=== PATIENT | female | born 1950 | race Caucasian/White ===

== ENCOUNTER 2022-05-26 09:04 | Outpatient (CLI) | payer MEDICARE, BC, SELFPAY ==
--- NOTE | 2022-05-26 09:15 | MR_ITS ---
[address] [address] Phone:?[phone] Fax:?[phone] Referring Physician Information: Peter Colorado M.D. [address] [facility] [address] Phone:?[phone] Fax:?[phone] Patient:Maritza Jim D.O.B:?1950 Sex:?Female Phone:?[phone] [facility] MRN:?[id number] Exam Date:?05/26/2022 ? EXAM: MRI OF THE RIGHT SHOULDER CLINICAL INFORMATION: The patient is a 72-year-old with right shoulder pain. Evaluate for rotator cuff tear. PRIOR SURGERY: None reported. COMPARISON STUDIES: There are no prior studies available for comparison. TECHNICAL INFORMATION: Using a 1.5T MR scanner and a localizing shoulder surface coil: 3.0 mm?coronal obliques: PD, T2, STIR 3.0 mm?sagittal obliques: PD, T2 3.0 mm?axials: PD, T2 FINDINGS: Articular/Extraarticular collections: Effusion: Mild to moderate. Subacromial/subdeltoid: Mild to moderate fluid is seen within the subacromial/subdeltoid bursa, in keeping with the full-thickness rotator cuff tearing discussed below. Subcoracoid: Mild fluid is seen within the subcoracoid bursa, in keeping with mild bursitis. Osseous structures: Proximal humerus: Cortical irregularity and subcortical edema can be seen involving the greater tuberosity region, in keeping with the rotator cuff pathology discussed below. There is no evidence for greater or lesser tuberosity fracture. No Hill-Sachs or reverse Hill-Sachs lesion is identified. Glenoid: No acute bony abnormality of the glenoid fossa or glenoid neck can be seen. Acromioclavicular joint: Mild to moderate changes of acromioclavicular joint arthrosis are present and can be seen on sagittal series 7 image 14 and on coronal series 4 image 10. Coracoacromial arch: Acromion morphology: Type II. No evidence for os acromiale. Acromiohumeral space: The lower limits of normal. Coracohumeral space: Moderately narrowed. Rotator cuff and deltoid: Supraspinatus: Moderate supraspinatus tendinosis can be seen. There is broad- based, full-thickness tearing of the supraspinatus tendon fibers, seen to best advantage on coronal series 4 image 10 and on sagittal series 8 image 7. The area of tearing measures approximately 23 mm in mediolateral dimension and 21 mm in anteroposterior dimension. No atrophic changes of the supraspinatus muscle belly are identified. Infraspinatus: Moderate infraspinatus tendinosis can be seen. There is no evidence for full or partial-thickness tearing. No atrophic changes of the infraspinatus muscle belly are present. Teres minor: No evidence for tendinosis, tearing, or associated muscle belly atrophy. Subscapularis: Moderate subscapularis tendinosis can be seen. There is no evidence for full or partial-thickness tearing. No atrophic changes of the subscapularis muscle belly are noted. Deltoid: No evidence for strain or tearing. Biceps tendon: The intra-articular portion of the long head of the biceps tendon is not well visualized. The biceps tendon is absent from the biceps sulcus. The findings are in keeping with an intra-articular rupture of the long head of the biceps tendon with subsequent retraction. Glenohumeral joint and labrum: Articular Cartilage: No definite chondral injuries along the articular surfaces of the glenohumeral articulation can be seen. No osteoarthritic changes are identified. Labrum: The anterior, posterior, superior, and inferior portions of the labrum appear intact. No evidence for paralabral ganglion cyst formation can be seen. Capsular Soft Tissues: No definite capsular abnormalities of the glenohumeral joint are seen. No evidence for capsular tearing is present and there are no MR signs of adhesive capsulitis. CONCLUSION: 1. Moderate supraspinatus, infraspinatus, and subscapularis tendinosis with superimposed full-thickness tearing of the supraspinatus tendon fibers. 2. 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 3. Glenohumeral joint effusion with subacromial/subdeltoid and subcoracoid bursal fluid. 4. Intra-articular rupture of the long head of the biceps tendon with subsequent retraction. 5. No osteoarthritic changes of the glenohumeral articulation are identified. [facility] Electronically signed on 05/26/2022 3:14:00 PM by Mannie Cabrera M.D.
== END 2022-05-26 09:05 | disposition home or self-care (01) ==
PROVIDERS: PCP Family Medicine; Visit Provider Orthopaedic Surgery
DX: M25.511 Pain in right shoulder (principal); M19.011 Primary osteoarthritis, right shoulder; M25.411 Effusion, right shoulder
CPT/HCPCS: 73221

== ENCOUNTER 2022-08-18 06:27 | Day surgery (SDC) | payer MEDICARE, BC, SELFPAY ==
[2022-08-18] VITALS (21 sets, daily range): BP systolic 100–157; BP diastolic 58–90; PULSE 70–90; RESP 14–18; TEMP 36.2–36.8; O2SAT 84–97; BMI 36.6
[2022-08-18] MEDS: LACTATED RINGERS 1000 ML 1,000 ML 100 ML IV ×2 (06:30→08:52)
[2022-08-18] MEDS: ACETAMINOPHEN 500 MG TABLET 1000 MG PO (06:50)
[2022-08-18] MEDS: OXYCODONE (CR) 10 MG TAB.ER.12H PO (06:50)
[2022-08-18] MEDS: CELECOXIB 200 MG CAPSULE PO (06:50)
[2022-08-18] MEDS: MIDAZOLAM HCL 1 MG/ML inj IVP (07:06)
[2022-08-18] MEDS: fentaNYL 100 MCG/2 ML inj IVP (07:06)
--- NOTE | 2022-08-18 07:09 | P.NB_ITS ---
Nerve Block Nerve Block Time Seen by Provider: 07:10 Date Seen: 08/18/22 Type of block requested by surgeon for post-operative analgesia: interscalene Side: right Time out performed: Yes Verification of patient name: Yes Verification of date of : Yes Site marking: site marked Name of person performing procedure: Zuhair Continuous monitoring Was continuous monitoring of O2 sat, B/P, monitoring and evaluation advisor, recorded every 15 minutes?: Yes Procedure Checklist: sterile prep, needles and gloves Ultrasound guided. Images saved: Yes Medications given in 5ml increments after negative aspiration: Ropivicaine %: 0.5 mL: 20 Needle gauge: 22 Decadron (mg): 10 Precedex (mcg): 25 Patient tolerated procedure well: Yes Block Charges Block Charge (with Pro Fee): Brachial Plexus Use of Ultrasound Machine for Block: Yes- US Guidance/pain block
--- NOTE | 2022-08-18 07:34 | SUR.PREOP ---
TIME?OUT:?05 PT/RN/MDA?VERIFICATION?OF?SURGICAL?SITE,?PROCEDURE,?AND?CONSENT OBTAINED?PRIOR?TO?INVASIVE?PROCEDURE.
[2022-08-18] MEDS: CEFAZOLIN 2 GM INJ IVP (07:50)
[2022-08-18] MEDS: SODIUM CHLORIDE IRRIG SOLUTION 3,000 ML, EPINEPHrine 1 MG IRRIGATION (08:24)
--- NOTE | 2022-08-18 09:12 | PM.ORPRC ---
Procedure Note Date of procedure: 08/18/22 Procedure: SURGEON: Peter Colorado MD LABORER LANDSCAPE: Shira Bueno PA-C PREOPERATIVE DIAGNOSIS: Right shoulder rotator cuff tear, AC joint arthrosis POSTOPERATIVE DIAGNOSIS: Right shoulder rotator cuff tear, AC joint arthrosis NAME OF OPERATION: Right shoulder arthroscopic subacromial decompression, distal clavicle excision, mini open rotator cuff repair ANESTHESIA: Supraclavicular block plus general endotracheal ESTIMATED BLOOD LOSS: 5 mL COMPLICATIONS: None SPECIMENS: None DRAINS: None PREOPERATIVE ANTIBIOTICS: Ancef 2 grams INDICATIONS: The patient is a 72-year-old female with a history of right shoulder pain secondary to the above diagnoses. Despite appropriate non operative management, they continue to have symptoms. Operative intervention was recommended. The risks, benefits and expected outcomes were discussed in detail. These included but were not limited to: Infection, bleeding, injury to blood vessel or nerve, venous thromboembolism. All questions were answered to their satisfaction. PROCEDURE: A supraclavicular block was placed by Anesthesia. General anesthesia was administered. The patient was placed in the high beach chair position. The right shoulder was prepped and draped in the usual sterile fashion. The glenohumeral joint was infiltrated with 20 mL of normal saline with epinephrine. The posterior portal was established, the arthroscope was introduced. The anterior portal was established, Diagnostic arthroscopy was performed with findings as follows: The biceps is torn and retracted out of the glenohumeral joint. The anterior, posterior and superior labrum are normal. Articular surfaces on the humeral head and glenoid are normal. There are no loose bodies. There is a full-thickness tear of the supraspinatus. The stump of the biceps was resected with the shaver. The arthroscope was placed in the subacromial space, the lateral portal was established. The Arthrex Robbins was used to dissect the acromion free. The CA ligament was recessed off the anterior acromion, the AC joint was exposed. The acromioplasty was performed with the bur in the posterior portal. The bur was then placed in the lateral portal and the lateral and anterior aspect of the acromion were resected. The undersurface of the distal clavicle was resected through the lateral portal. Finally, the bur was placed in the anterior portal and the remainder of the distal clavicle was resected for a total of 10 mm. An accessory anterolateral portal was placed. The subacromial/subdeltoid bursa was aggressively debrided. There is a full-thickness tear of the supraspinatus. Arthroscopic instruments were removed. The accessory anterolateral portal was extended proximally and distally, subcutaneous dissection was taken with electrocautery to the deltoid. The deltoid was divided in line with its fibers. The static retractor was placed. The subacromial/subdeltoid bursa was debrided with the Young scissors. The greater tuberosity was debrided to punctate bleeding bone using the arthroscopic bur. Two Arthrex BioComposite SwiveLock anchors were placed just off the articular surface. Both limbs of the FiberWire and fiber tape were passed using the scorpion. A fiber link was placed in the leading edge of the rotator cuff x2. A #2 FiberWire suture was used to place 3 margin convergence sutures, closing the rotator cuff. We then tied the 2 central FiberWire sutures over the rotator cuff. We then proceeded with a lateral row of SwiveLock anchors x 2 crossing the FiberTape and incorporating the FiberWire and fiber link into each lateral row anchor. This provides an anatomic, watertight repair of the rotator cuff. There is no tension on the repair with the shoulder at 0? abduction. The wound was irrigated with normal saline off the pump. The deltoid was repaired with an 0 Vicryl in an interrupted [id number] fashion. Subcutaneous tissues were closed with a 3-0 Vicryl. Skin was closed with a 3-0 Monocryl in a subcuticular fashion. A dry dressing, polar care and sling were applied. Sponge and needle counts were correct x2. The patient tolerated the procedure well. There were no apparent complications. They were carefully transferred to the hospital bed and taken to the postanesthesia care unit in satisfactory condition. PLAN: The patient will be discharged to home. No active range of motion of the shoulder will be allowed for 6 weeks postoperatively. They can work on active range of motion of the elbow, wrist and fingers. They will follow up in the office next week for a wound check and an AP and transscapular Y-view of the shoulder prior to being seen.
--- NOTE | 2022-08-18 09:42 | W.ANESCHARGE ---
Anesthesia Charges Start Date/Time Anesthesia Start Date: 08/18/22 Anesthesia Start Time: 07:43 Stop Date/Time Anesthesia Stop Date: 08/18/22 Anesthesia Stop Time: 09:42 Summary Emergency: No Extremes of Age: Over 71-CPT [address]
--- NOTE | 2022-08-18 12:07 | SUR.PHASEII ---
PATIENT GIVEN A INCENTIVE SPIROMETER, ANESTHESIA AWARE OF PATIENTS O2 SATS. CONTINUED TO MONITOR.
--- NOTE | 2022-08-18 12:28 | SUR.PHASEII ---
ANESTHESIA OK TO HAVE PATIENT DISCHARGE.
== END 2022-08-18 12:30 | disposition home or self-care (01) ==
PROVIDERS: PCP Family Medicine; Visit Provider Orthopaedic Surgery
PROC: (CPT 23412; principal; 2022-08-18 08:00)
DX: M75.121 Complete rotator cuff tear or rupture of right shoulder, not specified as traumatic (principal); M19.011 Primary osteoarthritis, right shoulder
CPT/HCPCS: 29826; 29824; 23412; 01630; 64415; 76942; 82962; 99100; A9270; C1713; J0171; J0330; J0690; J1100; J2250; J2405; J2704; J2795; J3010; J7120; L3670

== ENCOUNTER 2023-05-28 11:29 | Observation (INO) | payer MEDICARE, BC, SELFPAY ==
[2023-05-28 11:38] VITALS: BP 137/93; PULSE 92; RESP 18; TEMP 36.6; O2SAT 94; BMI 31.3
--- NOTE | 2023-05-28 11:51 | CRLHL7_ITS ---
For Patients: As a result of the Century Cures Act, medical imaging exams and procedure reports are released immediately into your electronic medical record. You may view this report before your referring provider. If you have questions, please contact your health care provider. INDICATION: Fall TECHNIQUE: CT head without contrast. COMPARISON: None. FINDINGS: CSF spaces: Within normal limits for age. Brain parenchyma: The phillips-white differentiation is normal. No sign of mass, hemorrhage, or midline shift. Skull base and calvarium: The visualized paranasal sinuses and mastoid air cells demonstrate no acute or significant findings. The visualized orbits are grossly unremarkable. No skull fractures. Atherosclerosis. IMPRESSION: Unremarkable noncontrast head CT. Please note that all CT scans at this facility use dose modulation, iterative reconstruction, and/or weight-based dosing when appropriate to reduce radiation dose to as low as reasonably achievable. Dictated by Pete Mcrae MD @ 05/28/2023 2:35:23 PM (Electronically Signed)
[2023-05-28 11:55] LABS: Appearance Urine Clear (Clear); Bilirubin Urine Negative (Negative); Blood Urine Negative (Negative); Color Urine Yellow (Yellow); Glucose Urine Negative (Negative); Ketones Urine Negative (Negative); Leukocyte Esterase Urine Negative (Negative); Nitrite Urine Negative (Negative); Protein Urine Negative (Negative)
[2023-05-28 12:11] LABS: RBC Urine 0-2 (0-2); Squamous Epithelial Cell Urine Few (None-Few); WBC Urine 0-2 (0-5)
[2023-05-28 13:20] LABS: Basophils Absolute Auto 0.06 K/uL (0.00-0.30); Basophils Percent Auto 0.9 % (0.0-3.0); Eosinophils Absolute Auto 0.02 K/uL (0.00-0.50); Eosinophils Percent Auto 0.3 % (0.0-7.0); Hematocrit 35.9 % (33.0-51.0); Hemoglobin* 11.1 gm/dL (12.0-16.0); Immature Granulocytes Abs Auto 0.01 K/uL (0.00-0.30); Immature Granulocytes Pct Auto 0.1 %; Lymphocytes Percent Auto 16.5 % (20-44); Mean Corpuscular HGB Conc 31 gm/dL (32-36); Mean Corpuscular Hemoglobin 25 pg (26-34); Mean Corpuscular Volume 81 fL (80-100); Monocytes Percent Auto 9.5 % (0.0-11.0); Neutrophils Percent Auto 72.7 % (42.0-72.0); Platelet Count* 240 K/uL (140-440); Red Blood Count 4.43 m/uL (4.00-5.20); White Blood Count* 6.98 K/uL (4.50-11.00)
[2023-05-28 13:26] LABS: Appearance Urine Clear (Clear); Bilirubin Urine Negative (Negative); Blood Urine Negative (Negative); Color Urine Yellow (Yellow); Glucose Urine Negative (Negative); Ketones Urine 1+ (Negative); Leukocyte Esterase Urine Negative (Negative); Nitrite Urine Negative (Negative); Protein Urine Negative (Negative); Specific Gravity Urine 1.015 (1.000-1.030)
[2023-05-28 13:32] LABS: Tricyclic Antidepressant Urine Negative (Negative)
[2023-05-28 13:33] VITALS: BP 148/73; PULSE 86; RESP 20; TEMP 36.6; O2SAT 95
[2023-05-28 13:36] LABS: Slide Review Reflex No
--- NOTE | 2023-05-28 13:36 | ED_ITS ---
HPI - General Adult General Chief complaint: Altered Mental Status <Nani Zamora MD - Last Filed: 05/29/23 19:55> Stated complaint: UTI <Nani Zamora MD - Last Filed: 05/29/23 19:55> Time Seen by Provider: 05/28/23 11:44 <Nani Zamora MD - Last Filed: 05/29/23 19:55> Source: patient and family <Nani Zamora MD - Last Filed: 05/29/23 19:55> Mode of arrival: ambulatory <Nani Zamora MD - Last Filed: 05/29/23 19:55> Limitations: no limitations <Nani Zamora MD - Last Filed: 05/29/23 19:55> History of Present Illness HPI narrative: 73 year old female presenting to the ED at the request of her primary care provider for hallucinations changes in behavior. According to her primary doctor who called the ER prior to her arriving patient presented to the clinic today for an appointment to discuss confusion. Turns out patient has been having auditory hallucinations and paranoia. She tells her family members that her is cheating on her with multiple people. She tells and that they are all in on this scandal. Per her daughter who is with her today daughter states that the patient is certain that this people are coming into their home at night and stealing there socks and underwear. She then looked through her bank accounts and patient has been going to [employer] every other day to buy new socks and underwear. They found several new batches of this in her home. Per her primary care provider and per her daughter, they are concerned that she is very manipulative and is able to hide her hallucinations and paranoia very well from other people. She has also been threatening to kill her in the middle of the night and so her primary care provider felt that an ER evaluation would be more appropriate. Per her daughter, she becomes very mean-she stares at people, she comments that every woman she sees having an affair with her . However, she has never made any physical attacks to any family member or other people. No history of self-harm. She does have a history of binge drinking per her daughter. She lives at home with her who is a chronic alcoholic according to the daughter. Per the patient, she states that everything is fine. She has no concerns today. She states that she was brought in by family members because they felt that she was confused. She denies feeling confused. <Nani Zamora MD - Last Filed: 05/29/23 19:55> Related Data Home medications: Home Medications Medication Instructions Recorded Confirmed antiarthritic combination no.2 900 mg PO 05/18/22 11/09/22 mg tablet (glucosamine-chondroitin) calcium polycarbophil 625 mg tablet 625 mg PO DAILY 05/18/22 05/29/23 cholecalciferol (vitamin D3) 125 125 mcg PO QDAY 05/18/22 05/29/23 mcg (5,000 unit) capsule coenzyme Q10 100 mg capsule 100 mg PO DAILY 05/18/22 05/29/23 furosemide 20 mg tablet 20 mg PO QAM 05/18/22 05/29/23 metformin 1,000 mg tablet 1,000 mg PO QDAY 05/18/22 05/29/23 omeprazole 20 mg capsule,delayed 20 mg PO QDAY 05/18/22 05/29/23 release pravastatin 20 mg tablet 40 mg PO QHS 05/18/22 05/29/23 quetiapine 300 mg tablet 300 mg PO QDAY 05/18/22 05/29/23 trazodone 100 mg tablet 200 mg PO QHS 05/18/22 05/29/23 venlafaxine 100 mg tablet 100 mg PO BID 05/18/22 05/29/23 cyanocobalamin (vitamin B-12) 100 100 mcg PO DAILY 08/14/22 05/29/23 mcg tablet (Vitamin B-12) melatonin 10 mg capsule 10 mg PO QHS 08/14/22 05/29/23 multivitamin with iron (Daily 1 tab PO DAILY 08/14/22 05/29/23 Multiple Vitamins with Iron tablet) potassium chloride 10 mEq 20 meq PO BID 08/14/22 05/29/23 tablet,extended release quetiapine 100 mg tablet (Seroquel) 100 mg PO QHS 08/14/22 05/29/23 vit 1 tab PO BID 08/14/22 05/29/23 [id number] 500 mg-50 mg-25 mg-40 mg tablet (Bioflex) potassium chloride 20 mEq 20 meq PO BID 05/29/23 05/29/23 tablet,extended release pravastatin 40 mg tablet 40 mg PO HS 05/29/23 05/29/23 <Nani Zamora MD - Last Filed: 05/29/23 19:55> Allergies/adverse reactions: Allergies Allergy/AdvReac Type Severity Reaction Status Date / Time zolpidem Allergy Mild nightmares Verified 11/09/22 10:25 Benzodiazepines AdvReac Unknown Unknown Verified 05/29/23 14:58 <Nani Zamora MD - Last Filed: 05/29/23 19:55> Review of Systems Status of ROS: Reports: 10 or more systems reviewed and unremarkable except as noted in History and below <Nani Zamora MD - Last Filed: 05/29/23 19:55> [facility] Medical History: Medical History (Updated 05/29/23 @ 19:32 by Aliyah Berry MD) Hypokalemia ?E87.6 - Hypokalemia (ICD-10) Alcoholic liver disease ?K70.9 - Alcoholic liver disease, unspecified (ICD-10) Insomnia ?G47.00 - Insomnia, unspecified (ICD-10) Abnormal LFTs ?R79.89 - Other specified abnormal findings of blood chemistry (ICD-10) Alcohol use disorder, severe, in sustained remission ?F10.21 - Alcohol dependence, in remission (ICD-10) Bilateral lower extremity edema ?R60.0 - Localized edema (ICD-10) Benign neoplasm of colon ?D12.6 - Benign neoplasm of colon, unspecified (ICD-10) Reflux esophagitis ?K21.00 - Gastro-esophageal reflux disease with esophagitis, without bleeding (ICD-10) Stricture and stenosis of esophagus ?K22.2 - Esophageal obstruction (ICD-10) Hyperlipidemia ?E78.5 - Hyperlipidemia, unspecified (ICD-10) Generalized anxiety disorder ?F41.1 - Generalized anxiety disorder (ICD-10) Laceration of forehead ?S01.81XA - Laceration without foreign body of other part of head, initial encounter (ICD-10) Back pain ?M54.9 - Dorsalgia, unspecified (ICD-10) Type 2 diabetes mellitus, without long-term current use of insulin ?E11.9 - Type 2 diabetes mellitus without complications (ICD-10) Major depressive disorder, recurrent ?F33.9 - Major depressive disorder, recurrent, unspecified (ICD-10) Obesity (BMI 30-39.9) ?E66.9 - Obesity, unspecified (ICD-10) Arthritis of right acromioclavicular joint ?M19.011 - Primary osteoarthritis, right shoulder (ICD-10) Rupture of right biceps tendon ?S46.211A - Strain of muscle, fascia and tendon of other parts of biceps, right arm, initial encounter (ICD-10) Rotator cuff tear, right ?M75.101 - Unspecified rotator cuff tear or rupture of right shoulder, not specified as traumatic (ICD-10) <Nani Zamora MD - Last Filed: 05/29/23 19:55> Surgical History: Surgical History (Updated 05/29/23 @ 15:07 by Aliyah Berry MD) S/P excision of lipoma (~2003) ?Z98.890 - Other specified postprocedural states (ICD-10) ?Z86.018 - Personal history of other benign neoplasm (ICD-10) History of cholecystectomy (~03/31/10) ?Z90.49 - Acquired absence of other specified parts of digestive tract (ICD- 10) Status post right rotator cuff repair (08/18/22) ?Z98.890 - Other specified postprocedural states (ICD-10) History of carpal tunnel release (02/04/10) ?Z98.890 - Other specified postprocedural states (ICD-10) S/P ORIF (open reduction internal fixation) fracture (04/28/13) ?Z98.890 - Other specified postprocedural states (ICD-10) ?Z87.81 - Personal history of (healed) traumatic fracture (ICD-10) Status post arthroscopic partial medial meniscectomy (06/06/13) ?Z98.890 - Other specified postprocedural states (ICD-10) Status post total left knee replacement (02/12/16) ?Z96.652 - Presence of left artificial knee joint (ICD-10) Status post knee replacement (10/28/16) ?Z96.659 - Presence of unspecified artificial knee joint (ICD-10) <Nani Zamora MD - Last Filed: 05/29/23 19:55> Family History: Family History (Updated 05/29/23 @ 15:10 by Aliyah Berry MD) Daughter ADHD Depression Eating disorder Father Alcohol dependence Colon cancer Son Anxiety Depression Mother Asthma Lung cancer Family/Other Bipolar disorder Brother Pancreatic cancer Sister Breast cancer <Nani Zamora MD - Last Filed: 05/29/23 19:55> Social History: Social History (Updated 05/29/23 @ 15:37 by Aliyah Berry MD) Narrative: Denies tob, EtOH, drug use. Has h/o alcohol and benzo abuse, but has not had any since Oct 2021. What is your current living situation?: I presently have a place to live Problems where you live: no known problems Problems where you live details: PATIENT REPORTS HER IS AN ALCOHOLIC In the past 12 months, utilities in danger of being shut off: no In the past 12 mos, have been you worried that your food would run out before you had money to buy more?: never true In the past 12 mos, the food you bought just didn't last and you didn't have money to buy more?: never true Highest level of school completed/degree received: high school graduate Smoking Status: Never smoker Do you use any of these nicotine containing products: None Second hand tobacco smoke exposure: No How often do you have a drink containing alcohol: never How often do you have six or more drinks on one occasion: Never AUDIT-C Alcohol total score: 0 Non-prescribed substance use: denies use Caffeine: No How often does anyone, including family, friends and others, physically hurt you : never How often does anyone, including family, friends and others, insult or talk down to you: never How often does anyone, including family, friends and others, threaten you with harm: never How often does anyone, including family, friends and others, scream or curse at you: never service: No <aNni Zamora MD - Last Filed: 05/29/23 19:55> Exam Narrative: Exam Narrative: Well-nourished well-developed patient in no acute distress. Alert and oriented x3. Answers questions appropriately. Mood and affect are appropriate. Thoughts are goal oriented and rational. No tangential or magical thinking noted. Patient speaks in full sentences without needing to catch her breath. HEENT: Normocephalic atraumatic. Pupils are equally round reactive to light. Extraocular muscles are intact. Conjunctivae are moist without any icterus noted. Moist mucous membranes. Posterior pharynx is normal. Neck is soft without any lymphadenopathy or thyromegaly. No masses are appreciated. Cardiovascular: Heart is regular rate and rhythm S1 and S2 are present without any murmurs. Lungs: Clear to auscultation bilaterally no wheezes rhonchi or rales are appreciated. Patient takes deep breaths without any discomfort. Abdomen: Soft and nontender nondistended with normal bowel sounds. Extremities: Bilateral lower extremities are without edema. Skin: Well perfused without any obvious rashes. <Nani Zamora MD - Last Filed: 05/29/23 19:55> Const: Vital Signs, click to edit/add: Vital Signs - 24 hr 05/28/23 15:50 05/28/23 18:59 Temperature 97.5 F L Pulse Rate [Pulse Oximeter] 70 79 Respiratory Rate 20 18 Blood Pressure [Ri ght Upper Arm] 152/73 H 148/76 H Pulse Oximetry 97 94 Oxygen Delivery Me thod Room Air Room Air <Nani Zamora MD - Last Filed: 05/29/23 19:55> Vital Signs, click to edit/add: Vital Signs - 24 hr 05/28/23 15:50 05/28/23 18:59 Temperature 97.5 F L Pulse Rate [Pulse Oximeter] 70 79 Respiratory Rate 20 18 Blood Pressure [Ri ght Upper Arm] 152/73 H 148/76 H Pulse Oximetry 97 94 Oxygen Delivery Me thod Room Air Room Air <Hamilton Petty MD - Last Filed: 05/29/23 15:44> Course Course Hospital Course: IV was established labs were drawn. Head CT was done and was unremarkable. Lab work was unremarkable. There is no evidence of a UTI. Drug screen was ne gative. EKG, read by me, shows normal sinus rhythm with a pulse of 92. Dec assessment was ordered. In the meantime, patient did express her concern to the nursing staff about chief her head and the fact that she was under surveillance. Per DEC patient very paranoid. No homicidal or suicidal intent, but she did admit to homicidal comments towards her , but things said in anger. Patient would like outpt therapy service - family concerned about this as aggression has been escalating. Given the recurrent homicidal comments made towards her , escalating impression per family, and escalating paranoia in the last couple of weeks I do believe that inpatient treatment would be more beneficial and safer for this particular patient. Patient accepted that she would be admitted. Several hours into her ED stay she did start becoming agitated and requested a medicine to help her relax. Patient received 5 mg of p.o. Zyprexa and this did seem to help her agitation. <Nani Zamora MD - Last Filed: 05/29/23 19:55> Vital Signs Vital signs: Initial Vital Signs Temperature 97.8 F 05/28/23 11:38 Temperature Source Temporal Artery Scan 05/28/23 11:38 Pulse Rate 92 05/28/23 11:38 Pulse Rhythm Regular 05/28/23 11:38 Respiratory Rate 18 05/28/23 11:38 Blood Pressure 137/93 H 05/28/23 11:38 Blood Pressure Mean 107 H 05/28/23 11:38 Blood Pressure Position Sitting 05/28/23 11:38 Pulse Oximetry 94 05/28/23 11:38 Oxygen Delivery Method Room Air 05/28/23 11:38 Vital Signs Temperature 97.8 F 05/28/23 11:38 Pulse Rate 92 05/28/23 11:38 Respiratory Rate 18 05/28/23 11:38 Blood Pressure 137/93 H 05/28/23 11:38 Pulse Oximetry 94 05/28/23 11:38 Oxygen Delivery Method Room Air 05/28/23 11:38 Temperature 98.0 F 05/29/23 19:45 Pulse Rate 75 05/29/23 19:45 Respiratory Rate 18 05/29/23 19:45 Blood Pressure 148/67 H 05/29/23 19:45 Pulse Oximetry 94 05/29/23 19:45 Oxygen Delivery Method Room Air 05/29/23 19:45 <Nani Zamora MD - Last Filed: 05/29/23 19:55> Initial Vital Signs Temperature 97.8 F 05/28/23 11:38 Temperature Source Temporal Artery Scan 05/28/23 11:38 Pulse Rate 92 05/28/23 11:38 Pulse Rhythm Regular 05/28/23 11:38 Respiratory Rate 18 05/28/23 11:38 Blood Pressure 137/93 H 05/28/23 11:38 Blood Pressure Mean 107 H 05/28/23 11:38 Blood Pressure Position Sitting 05/28/23 11:38 Pulse Oximetry 94 05/28/23 11:38 Oxygen Delivery Method Room Air 05/28/23 11:38 Vital Signs Temperature 97.8 F 05/28/23 11:38 Pulse Rate 92 05/28/23 11:38 Respiratory Rate 18 05/28/23 11:38 Blood Pressure 137/93 H 05/28/23 11:38 Pulse Oximetry 94 05/28/23 11:38 Oxygen Delivery Method Room Air 05/28/23 11:38 Temperature 98.0 F 05/29/23 19:45 Pulse Rate 75 05/29/23 19:45 Respiratory Rate 18 05/29/23 19:45 Blood Pressure 148/67 H 05/29/23 19:45 Pulse Oximetry 94 05/29/23 19:45 Oxygen Delivery Method Room Air 05/29/23 19:45 <Hamilton Petty MD - Last Filed: 05/29/23 15:44> Medical Decision Making MDM Narrative Medical decision making narrative: 73-year-old female with escalating aggression, paranoia and homicidal threats. Patient will be transferred to inpatient psychiatric facility. Awaiting placement at this time. <Nani Zamora MD - Last Filed: 05/29/23 19:55> 73-year-old female with escalating aggression, paranoia and homicidal threats. Patient will be transferred to inpatient psychiatric facility. Awaiting placement at this time. After approximately 30 hours residing in the emergency department and during this time multiple attempts were made for inpatient placement with no place becoming available for the weekend, I did speak with the hospitalist distribution analyst, Dr. Berry, who agrees to bring her into the hospital while awaiting for transfer. Dr. Charly Petty <Hamilton Petty MD - Last Filed: 05/29/23 15:44> Lab Data Lab results reviewed: Yes I reviewed the patient's lab results <Nani Zamora MD - Last Filed: 05/29/23 19:55> Labs: Lab Results 05/28/23 05/28/23 05/28/23 Range/Units 11:48 11:51 11:52 WBC (4.50-11.00) K/uL RBC (4.00-5.20) m/uL Hgb (12.0-16.0) gm/dL Hct (33.0-51.0) % MCV (80-100) fL MCH (26-34) pg MCHC (32-36) gm/dL RDW Coeff of Jan (11.5-15.5) % Plt Count (140-440) K/uL Neut % (Auto) (42.0-72.0) % Lymph % (Auto) (20-44) % [place] % (Auto) (0.0-11.0) % Eos % (Auto) (0.0-7.0) % Baso % (Auto) (0.0-3.0) % Neut # (Auto) (1.7-7.0) K/uL Lymph # (Auto) (0.90-2.90) K/uL [place] # (Auto) (0.00-0.90) K/UL Eos # (Auto) (0.00-0.50) K/uL Baso # (Auto) (0.00-0.30) K/uL Abs Immat Gran (auto) (0.00-0.30) K/uL Imm/Tot Granulo (auto) % INR (0.91-1.10) Sodium (135-149) mmol/L Potassium (3.6-5.1) mmol/L Chloride (96-114) mmol/L Carbon Dioxide (20-32) mmol/L BUN (7-30) mg/dL Creatinine (0.5-1.5) mg/dL Estimated Creat Clear Estimated GFR ml/min Glucose (60-115) mg/dL Lactate (0.5-1.9) mmol/L Calcium (8.4-10.6) mg/dL Total Bilirubin (0.1-1.5) mg/dL Direct Bilirubin (0.0-0.5) mg/dL AST (12-35) U/L ALT (4-35) U/L Alkaline Phosphatase (40-150) U/L Ammonia < 9.0 L (13.1-30.0) umol/L Troponin I < 0.01 L (0.01-0.04) ng/mL C-Reactive Protein (0.5-1.0) mg/dL Total Protein (6.0-8.3) g/dL Albumin (3.3-5.0) g/dL Lipase (23-300) U/L TSH 0.637 (0.270-4.20) uIU/mL Urine Color Yellow (Yellow) Urine Appearance Clear (Clear) Urine pH 7.0 (5.0-8.5) Ur Specific Gar[place] 1.010 (1.000-1.030) Urine Protein Negative (Negative) Urine Glucose (UA) Negative (Negative) Urine Ketones Negative (Negative) Urine Blood Negative (Negative) Urine Nitrite Negative (Negative) Urine Bilirubin Negative (Negative) Urine Urobilinogen 2.0 A (0.2-1.0) Ur Leukocyte Esterase Negative (Negative) Urine RBC 0-2 (0-2) Urine WBC 0-2 (0-5) Ur Squamous Epith Cells Few (None-Few) Urine Bacteria None (None) Salicylates (1.0-10) mg/dL Urine Opiates Screen (Negative) Ur Oxycodone Screen (Negative) Urine Methadone Screen (Negative) Ur Propoxyphene Screen (Negative) Acetaminophen (10.0-30.0) ug/mL Ur Barbiturates Screen (Negative) U Tricyclic Antidepress (Negative) Ur Phencyclidine Scrn (Negative) Ur Amphetamines Screen (Negative) U Methamphetamines Scrn (Negative) U Benzodiazepines Scrn (Negative) Urine Cocaine Screen (Negative) U Marijuana (THC) Screen (Negative) Ur Drug Screen Comment Ethyl Alcohol (0.01-0.03) % 05/28/23 05/28/23 Range/Units 13:04 13:15 WBC 6.98 (4.50-11.00) K/uL RBC 4.43 (4.00-5.20) m/uL Hgb 11.1 L (12.0-16.0) gm/dL Hct 35.9 (33.0-51.0) % MCV 81 (80-100) fL MCH 25 L (26-34) pg MCHC 31 L (32-36) gm/dL RDW Coeff of Jan 16.0 H (11.5-15.5) % Plt Count 240 (140-440) K/uL Neut % (Auto) 72.7 H (42.0-72.0) % Lymph % (Auto) 16.5 L (20-44) % [place] % (Auto) 9.5 (0.0-11.0) % Eos % (Auto) 0.3 (0.0-7.0) % Baso % (Auto) 0.9 (0.0-3.0) % Neut # (Auto) 5.10 (1.7-7.0) K/uL Lymph # (Auto) 1.20 (0.90-2.90) K/uL [place] # (Auto) 0.70 (0.00-0.90) K/UL Eos # (Auto) 0.02 (0.00-0.50) K/uL Baso # (Auto) 0.06 (0.00-0.30) K/uL Abs Immat Gran (auto) 0.01 (0.00-0.30) K/uL Imm/Tot Granulo (auto) 0.1 % INR 1.03 (0.91-1.10) Sodium 134 L (135-149) mmol/L Potassium 3.5 L (3.6-5.1) mmol/L Chloride 98 (96-114) mmol/L Carbon Dioxide 30 (20-32) mmol/L BUN 3 L (7-30) mg/dL Creatinine 0.5 (0.5-1.5) mg/dL Estimated Creat Clear 56.44 Estimated GFR 100 ml/min Glucose 110 (60-115) mg/dL Lactate 1.0 (0.5-1.9) mmol/L Calcium 8.8 (8.4-10.6) mg/dL Total Bilirubin 0.6 (0.1-1.5) mg/dL Direct Bilirubin 0.1 (0.0-0.5) mg/dL AST 32 (12-35) U/L ALT 21 (4-35) U/L Alkaline Phosphatase 76 (40-150) U/L Ammonia (13.1-30.0) umol/L Troponin I (0.01-0.04) ng/mL C-Reactive Protein < 0.5 L (0.5-1.0) mg/dL Total Protein 6.8 (6.0-8.3) g/dL Albumin 4.3 (3.3-5.0) g/dL Lipase 50 (23-300) U/L TSH (0.270-4.20) uIU/mL Urine Color Yellow (Yellow) Urine Appearance Clear (Clear) Urine pH 7.0 (5.0-8.5) Ur Specific [place] 1.015 (1.000-1.030) Urine Protein Negative (Negative) Urine Glucose (UA) Negative (Negative) Urine Ketones 1+ A (Negative) Urine Blood Negative (Negative) Urine Nitrite Negative (Negative) Urine Bilirubin Negative (Negative) Urine Urobilinogen 2.0 A (0.2-1.0) Ur Leukocyte Esterase Negative (Negative) Urine RBC 0-2 (0-2) Urine WBC 0-2 (0-5) Ur Squamous Epith Cells None (None-Few) Urine Bacteria None (None) Salicylates < 1.0 L (1.0-10) mg/dL Urine Opiates Screen Negative (Negative) Ur Oxycodone Screen Negative (Negative) Urine Methadone Screen Negative (Negative) Ur Propoxyphene Screen Negative (Negative) Acetaminophen < 10.0 L (10.0-30.0) ug/mL Ur Barbiturates Screen Negative (Negative) U Tricyclic Antidepress Negative (Negative) Ur Phencyclidine Scrn Negative (Negative) Ur Amphetamines Screen Negative (Negative) U Methamphetamines Scrn Negative (Negative) U Benzodiazepines Scrn Negative (Negative) Urine Cocaine Screen Negative (Negative) U Marijuana (THC) Screen Negative (Negative) Ur Drug Screen Comment See Note Ethyl Alcohol < 0.01 L (0.01-0.03) % <Nani Zamora MD - Last Filed: 05/29/23 19:55> Lab Results 05/28/23 05/28/23 05/28/23 Range/Units 11:48 11:51 11:52 WBC (4.50-11.00) K/uL RBC (4.00-5.20) m/uL Hgb (12.0-16.0) gm/dL Hct (33.0-51.0) % MCV (80-100) fL MCH (26-34) pg MCHC (32-36) gm/dL RDW Coeff of Jan (11.5-15.5) % Plt Count (140-440) K/uL Neut % (Auto) (42.0-72.0) % Lymph % (Auto) (20-44) % [place] % (Auto) (0.0-11.0) % Eos % (Auto) (0.0-7.0) % Baso % (Auto) (0.0-3.0) % Neut # (Auto) (1.7-7.0) K/uL Lymph # (Auto) (0.90-2.90) K/uL [place] # (Auto) (0.00-0.90) K/UL Eos # (Auto) (0.00-0.50) K/uL Baso # (Auto) (0.00-0.30) K/uL Abs Immat Gran (auto) (0.00-0.30) K/uL Imm/Tot Granulo (auto) % INR (0.91-1.10) Sodium (135-149) mmol/L Potassium (3.6-5.1) mmol/L Chloride (96-114) mmol/L Carbon Dioxide (20-32) mmol/L BUN (7-30) mg/dL Creatinine (0.5-1.5) mg/dL Estimated Creat Clear Estimated GFR ml/min Glucose (60-115) mg/dL Lactate (0.5-1.9) mmol/L Calcium (8.4-10.6) mg/dL Total Bilirubin (0.1-1.5) mg/dL Direct Bilirubin (0.0-0.5) mg/dL AST (12-35) U/L ALT (4-35) U/L Alkaline Phosphatase (40-150) U/L Ammonia < 9.0 L (13.1-30.0) umol/L Troponin I < 0.01 L (0.01-0.04) ng/mL C-Reactive Protein (0.5-1.0) mg/dL Total Protein (6.0-8.3) g/dL Albumin (3.3-5.0) g/dL Lipase (23-300) U/L TSH 0.637 (0.270-4.20) uIU/mL Urine Color Yellow (Yellow) Urine Appearance Clear (Clear) Urine pH 7.0 (5.0-8.5) Ur Specific [place] 1.010 (1.000-1.030) Urine Protein Negative (Negative) Urine Glucose (UA) Negative (Negative) Urine Ketones Negative (Negative) Urine Blood Negative (Negative) Urine Nitrite Negative (Negative) Urine Bilirubin Negative (Negative) Urine Urobilinogen 2.0 A (0.2-1.0) Ur Leukocyte Esterase Negative (Negative) Urine RBC 0-2 (0-2) Urine WBC 0-2 (0-5) Ur Squamous Epith Cells Few (None-Few) Urine Bacteria None (None) Salicylates (1.0-10) mg/dL Urine Opiates Screen (Negative) Ur Oxycodone Screen (Negative) Urine Methadone Screen (Negative) Ur Propoxyphene Screen (Negative) Acetaminophen (10.0-30.0) ug/mL Ur Barbiturates Screen (Negative) U Tricyclic Antidepress (Negative) Ur Phencyclidine Scrn (Negative) Ur Amphetamines Screen (Negative) U Methamphetamines Scrn (Negative) U Benzodiazepines Scrn (Negative) Urine Cocaine Screen (Negative) U Marijuana (THC) Screen (Negative) Ur Drug Screen Comment Ethyl Alcohol (0.01-0.03) % 05/28/23 05/28/23 Range/Units 13:04 13:15 WBC 6.98 (4.50-11.00) K/uL RBC 4.43 (4.00-5.20) m/uL Hgb 11.1 L (12.0-16.0) gm/dL Hct 35.9 (33.0-51.0) % MCV 81 (80-100) fL MCH 25 L (26-34) pg MCHC 31 L (32-36) gm/dL RDW Coeff of Jan 16.0 H (11.5-15.5) % Plt Count 240 (140-440) K/uL Neut % (Auto) 72.7 H (42.0-72.0) % Lymph % (Auto) 16.5 L (20-44) % [place] % (Auto) 9.5 (0.0-11.0) % Eos % (Auto) 0.3 (0.0-7.0) % Baso % (Auto) 0.9 (0.0-3.0) % Neut # (Auto) 5.10 (1.7-7.0) K/uL Lymph # (Auto) 1.20 (0.90-2.90) K/uL [place] # (Auto) 0.70 (0.00-0.90) K/UL Eos # (Auto) 0.02 (0.00-0.50) K/uL Baso # (Auto) 0.06 (0.00-0.30) K/uL Abs Immat Gran (auto) 0.01 (0.00-0.30) K/uL Imm/Tot Granulo (auto) 0.1 % INR 1.03 (0.91-1.10) Sodium 134 L (135-149) mmol/L Potassium 3.5 L (3.6-5.1) mmol/L Chloride 98 (96-114) mmol/L Carbon Dioxide 30 (20-32) mmol/L BUN 3 L (7-30) mg/dL Creatinine 0.5 (0.5-1.5) mg/dL Estimated Creat Clear 56.44 Estimated GFR 100 ml/min Glucose 110 (60-115) mg/dL Lactate 1.0 (0.5-1.9) mmol/L Calcium 8.8 (8.4-10.6) mg/dL Total Bilirubin 0.6 (0.1-1.5) mg/dL Direct Bilirubin 0.1 (0.0-0.5) mg/dL AST 32 (12-35) U/L ALT 21 (4-35) U/L Alkaline Phosphatase 76 (40-150) U/L Ammonia (13.1-30.0) umol/L Troponin I (0.01-0.04) ng/mL C-Reactive Protein < 0.5 L (0.5-1.0) mg/dL Total Protein 6.8 (6.0-8.3) g/dL Albumin 4.3 (3.3-5.0) g/dL Lipase 50 (23-300) U/L TSH (0.270-4.20) uIU/mL Urine Color Yellow (Yellow) Urine Appearance Clear (Clear) Urine pH 7.0 (5.0-8.5) Ur Specific [place] 1.015 (1.000-1.030) Urine Protein Negative (Negative) Urine Glucose (UA) Negative (Negative) Urine Ketones 1+ A (Negative) Urine Blood Negative (Negative) Urine Nitrite Negative (Negative) Urine Bilirubin Negative (Negative) Urine Urobilinogen 2.0 A (0.2-1.0) Ur Leukocyte Esterase Negative (Negative) Urine RBC 0-2 (0-2) Urine WBC 0-2 (0-5) Ur Squamous Epith Cells None (None-Few) Urine Bacteria None (None) Salicylates < 1.0 L (1.0-10) mg/dL Urine Opiates Screen Negative (Negative) Ur Oxycodone Screen Negative (Negative) Urine Methadone Screen Negative (Negative) Ur Propoxyphene Screen Negative (Negative) Acetaminophen < 10.0 L (10.0-30.0) ug/mL Ur Barbiturates Screen Negative (Negative) U Tricyclic Antidepress Negative (Negative) Ur Phencyclidine Scrn Negative (Negative) Ur Amphetamines Screen Negative (Negative) U Methamphetamines Scrn Negative (Negative) U Benzodiazepines Scrn Negative (Negative) Urine Cocaine Screen Negative (Negative) U Marijuana (THC) Screen Negative (Negative) Ur Drug Screen Comment See Note Ethyl Alcohol < 0.01 L (0.01-0.03) % <Hamilton Petty MD - Last Filed: 05/29/23 15:44> Imaging Data CT scan - head: Attestation: I have reviewed the pertinent imaging results. <Nani Zamora MD - Last Filed: 05/29/23 19:55> Radiologist's impression: CT head without contrast. COMPARISON: None. FINDINGS: CSF spaces: Within normal limits for age. Brain parenchyma: The phillips-white differentiation is normal. No sign of mass, hemorrhage, or midline shift. Skull base and calvarium: The visualized paranasal sinuses and mastoid air cells demonstrate no acute or significant findings. The visualized orbits are grossly unremarkable. No skull fractures. Atherosclerosis. IMPRESSION: Unremarkable noncontrast head CT. <Nani Zamora MD - Last Filed: 05/29/23 19:55> ECG Data Attestation: I personally reviewed and interpreted this ECG as follows: <Nani Zamora MD - Last Filed: 05/29/23 19:55> Discharge Plan Discharge Clinical Impression: Hallucinations, Paranoia, Homicidal ideations <Nani Zamora MD - Last Filed: 05/29/23 19:55> Patient Disposition: Admitted As Inpatient <Nain Zamora MD - Last Filed: 05/29/23 19:55> Condition: Stable <Nani Zamora MD - Last Filed: 05/29/23 19:55>
[2023-05-28 13:38] LABS: RBC Urine 0-2 (0-2); WBC Urine 0-2 (0-5)
[2023-05-28 13:41] LABS: INR 1.03 (0.91-1.10); Prothrombin Time 14.1 Seconds
[2023-05-28 13:43] LABS: Cannabinoid Screen Urine Negative (Negative); Cocaine Screen Urine Negative (Negative); Methamphetamines Screen Urine Negative (Negative); Opiate Screen Urine Negative (Negative); Phencyclidine Screen Urine Negative (Negative)
[2023-05-28 13:44] LABS: Amphetamine Screen Urine Negative (Negative); Barbiturate Screen Urine Negative (Negative); Benzodiazepines Screen Urine Negative (Negative); Methadone Screen Urine Negative (Negative); Oxycodone Screen Urine Negative (Negative)
[2023-05-28 13:48] LABS: Albumin* 4.3 g/dL (3.3-5.0); Chloride* 98 mmol/L (96-114)
[2023-05-28 13:49] LABS: Sodium* 134 mmol/L (135-149)
[2023-05-28 13:50] LABS: Potassium* 3.5 mmol/L (3.6-5.1)
[2023-05-28 13:51] LABS: Creatinine* 0.5 mg/dL (0.5-1.5); Est. Creatinine Clearance* 56.44; Estimated Glomerular Filt Rate 100 ml/min
[2023-05-28 13:52] LABS: Alanine Aminotransferase* 21 U/L (4-35); Alkaline Phosphatase* 76 U/L (40-150); Aspartate Amino Transferase* 32 U/L (12-35); Bilirubin Direct* 0.1 mg/dL (0.0-0.5); Bilirubin Total* 0.6 mg/dL (0.1-1.5); Blood Urea Nitrogen* 3 mg/dL (7-30); Calcium* 8.8 mg/dL (8.4-10.6); Carbon Dioxide* 30 mmol/L (20-32); Glucose* 110 mg/dL (60-115); Lipase* 50 U/L (23-300); Total Protein* 6.8 g/dL (6.0-8.3)
[2023-05-28 13:54] LABS: Acetaminophen* < 10.0 ug/mL (10.0-30.0); Ethanol* < 0.01 % (0.01-0.03); Salicylate* < 1.0 mg/dL (1.0-10)
[2023-05-28 13:55] LABS: Ammonia* < 9.0 umol/L (13.1-30.0)
[2023-05-28 13:56] LABS: C Reactive Protein* < 0.5 mg/dL (0.5-1.0)
--- NOTE | 2023-05-28 14:05 | ED.NURSE ---
Sep, face sheet faxed to [facility].
[2023-05-28 14:08] LABS: Troponin I* < 0.01 ng/mL (0.01-0.04)
[2023-05-28 14:33] LABS: Thyroid Stimulating Hormone* 0.637 uIU/mL (0.270-4.20)
[2023-05-28 15:50] VITALS: BP 152/73; PULSE 70; RESP 20; O2SAT 97
--- NOTE | 2023-05-28 17:43 | ED.NURSE ---
DEC assessment, labs, ED clinical notes, and the 2 page psychiatric phone assessment have been faxed to [facility].
--- NOTE | 2023-05-28 17:44 | ED.NURSE ---
Possible room at [facility]. Family and patient are accepting of this. Pt has been cooperative
[2023-05-28] MEDS: OLANZapine 5 MG TAB.RAPDIS PO (18:26)
--- NOTE | 2023-05-28 18:29 | ED.NURSE ---
did eat fruit and ice cream.
[2023-05-28 18:59] VITALS: BP 148/76; PULSE 79; RESP 18; TEMP 36.4; O2SAT 94
--- NOTE | 2023-05-28 20:19 | ED.NURSE ---
Pt hand off given to next nurse
[2023-05-28] MEDS: TRAZODONE HCL 50 MG TABLET 200 MG PO (21:42)
[2023-05-28] MEDS: VENLAFAXINE HCL 37.5 MG TABLET 100 MG PO (21:45)
[2023-05-28] MEDS: POTASSIUM CHLORIDE 10 MEQ CAPSULE ER 20 MEQ PO (21:45)
--- NOTE | 2023-05-29 06:21 | ED.NURSE ---
Patient provided with tooth brush, tooth paste, deodorant as well as a wash rag and towel.
--- NOTE | 2023-05-29 06:34 | ED.NURSE ---
pt requested IV to be removed. IV removed, cath intact.
--- NOTE | 2023-05-29 06:38 | ED.NURSE ---
pt given cup of decaf coffee
--- NOTE | 2023-05-29 13:00 | ED.NURSE ---
Gave update to daughter via telephone. No bed availability over weekend. Patient had a bag of personal belonging dropped off today. Items were looked through for saftey and inventory was made. Selected comfort items were provided to patient with most others being kept securely.
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
--- NOTE | 2023-05-29 16:54 | ED.NURSE ---
Patient has been alert and orientated entire shift. She has been awake and appropriate. Using call light with needs and up to bathroom on unit independently. Has seemed to perseverate on obtaining shave cream and razor as she needs to shave my chin three times everyday. Rationale given for why this is not possible at this time but patient continues to request these items from all staff members.
--- NOTE | 2023-05-29 16:57 | ED.NURSE ---
Patient transfered to med/surg to allow for more comfort and privacy until placement for mental health can be obtained. All personal belongings were brought to med/surg unit at time of transfer.
[2023-05-29 17:02] VITALS: BP 148/71; PULSE 72; RESP 18; TEMP 36.6; O2SAT 98; BMI 30.9
[2023-05-29] MEDS: OMEPRAZOLE 20 MG CAPSULE DR PO (18:28)
[2023-05-29] MEDS: POTASSIUM CHLORIDE 10 MEQ CAPSULE ER 20 MEQ PO ×2 (18:28→21:54)
[2023-05-29 19:45] VITALS: BP 148/67; PULSE 75; RESP 18; TEMP 36.7; O2SAT 94
[2023-05-29] MEDS: TRAZODONE HCL 50 MG TABLET 200 MG PO (21:54)
[2023-05-29] MEDS: QUETIAPINE 100 MG TABLET PO (21:54)
[2023-05-29] MEDS: MELATONIN 3 MG TABLET PO (21:55)
[2023-05-29] MEDS: VENLAFAXINE HCL 37.5 MG TABLET 93.75 MG PO (22:20)
[2023-05-29 23:27] VITALS: BP 123/63; PULSE 71; RESP 16; TEMP 36.4; O2SAT 94
[2023-05-30] MEDS: PRAVASTATIN SODIUM 20 MG TABLET 40 MG PO ×2 (00:18→21:35)
[2023-05-30 03:05] VITALS: BP 131/68; PULSE 98; RESP 18; TEMP 36.7; O2SAT 98
--- NOTE | 2023-05-30 06:35 | PC.NURSE ---
Pt A&O, pleasant and cooperative. VSS. Up at [facility]. Pt states concern to report writer about going to another facility. Pt states she would rather go home.
[2023-05-30 07:00] VITALS: BP 128/67; PULSE 72; PULSE 95; RESP 18; TEMP 36; O2SAT 94
[2023-05-30 07:07] LABS: Chloride* 102 mmol/L (96-114); Potassium* 3.9 mmol/L (3.6-5.1); Sodium* 140 mmol/L (135-149)
[2023-05-30 07:10] LABS: Blood Urea Nitrogen* 5 mg/dL (7-30); Calcium* 8.8 mg/dL (8.4-10.6); Carbon Dioxide* 31 mmol/L (20-32); Creatinine* 0.6 mg/dL (0.5-1.5); Est. Creatinine Clearance* 55.78; Estimated Glomerular Filt Rate 95 ml/min; Glucose* 119 mg/dL (60-115)
--- NOTE | 2023-05-30 09:07 | PM.IMPN1 ---
Progress Note: A&P Assessment and plan (1) Homicidal ideations: Status: Acute (2) Paranoia: Problem details: - concerned about people coming into her house, having affairs - awaiting placement for [facility] Status: Acute (3) Hallucinations: Status: Acute (4) Hypokalemia: Problem details: Mild, asymptomatic Status: Acute (5) Hyponatremia: Problem details: - mild, unlikely contributing to paranoia, resolved hospital day #1 Status: Acute (6) Type 2 diabetes mellitus, without long-term current use of insulin: Problem details: - diet controlled Status: Chronic (7) Reflux esophagitis: Problem details: - EGD 2014 exhibited 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 She is comfortable and taking her home medications. We await [facility] placement for her. Exam Narrative: Exam Narrative: GEN: Alert and sitting comfortably in bedside chair HEENT: EOMIs bilaterally, no scleral icterus CV: RRR, No concerning murmurs R: LCTA bilaterally without concerning wheezing, air movement adequate Ext: wwp, no concerning edema Skin: No concerning skin lesions or rashes on exposed skin Psych: Mild paranoia when discussing her , redirectable, no agitation Const: Vital Signs, click to edit/add: Vital Signs - 24 hr 05/29/23 17:02 05/29/23 19:45 05/29/23 23:27 Temperature 97.8 F 98.0 F 97.5 F L Pulse Rate [Apical ] 72 Pulse Rate [Pulse Oximeter] 75 71 Respiratory Rate 18 18 16 Blood Pressure [Le ft Arm] 148/71 H 148/67 H 123/63 Pulse Oximetry 98 94 94 Oxygen Delivery Me thod Room Air Room Air Room Air 05/30/23 03:05 Temperature 98.1 F Pulse Rate [Apical ] Pulse Rate [Pulse Oximeter] 98 Respiratory Rate 18 Blood Pressure [Le ft Arm] 131/68 Pulse Oximetry 98 Oxygen Delivery Me thod Room Air Labs Labs: Laboratory Results - last 24 hr 05/30/23 06:16 Sodium 140 Potassium 3.9 Chloride 102 Carbon Dioxide 31 BUN 5 L Creatinine 0.6 Estimated Creat Clear 55.78 Estimated GFR 95 Glucose 119 H Calcium 8.8
[2023-05-30] MEDS: CYANOCOBALAMIN (VITAMIN B-12) 500 MCG TABLET PO (09:15)
[2023-05-30] MEDS: OMEPRAZOLE 20 MG CAPSULE DR PO (09:16)
[2023-05-30] MEDS: MULTIVITAMIN/MINERALS 1 TABLET 1 TAB PO (09:16)
[2023-05-30] MEDS: COENZYME Q10 100 MG CAPSULE PO (09:16)
[2023-05-30] MEDS: FUROSEMIDE 20 MG TABLET PO (09:17)
[2023-05-30] MEDS: VENLAFAXINE HCL 37.5 MG TABLET 93.75 MG PO ×2 (09:17→21:37)
[2023-05-30] MEDS: POTASSIUM CHLORIDE 10 MEQ CAPSULE ER 20 MEQ PO ×2 (09:17→21:34)
[2023-05-30 15:00] VITALS: RESP 18
[2023-05-30 16:00] VITALS: BP 124/79; PULSE 87; RESP 18; TEMP 36.1; O2SAT 95
--- NOTE | 2023-05-30 18:47 | PC.NURSE ---
VSS AND AFEBRILE. DENIES PAIN OR N/V. TOLERATING REGULAR DIET. PATIENT HAS BEEN PLEASANT AND COOPERATIVE. PATIENT AMBULATING INDEPENDENTLY IN HALLWAY AND COLORING IN ROOM AND PLAYING CROSSWORD PUZZLES. PATIENT DID EXPRESS ANXIETY REGARDING A MENTAL HEALTH PLACEMENT. PATIENT STATED THAT SHE STATED SHE WANTED TO KILL HER BECAUSE SHE WAS UPSET AT THE MOMENT, BUT SHE WAS NOT SERIOUS AND WOULD NEVER ACTUALLY DO THAT. SUPPORT GIVEN.
[2023-05-30 21:31] VITALS: BP 130/71; PULSE 83; RESP 18; TEMP 36.6; O2SAT 96
[2023-05-30] MEDS: QUETIAPINE 100 MG TABLET PO (21:35)
[2023-05-30] MEDS: MELATONIN 3 MG TABLET PO (21:35)
[2023-05-30] MEDS: TRAZODONE HCL 50 MG TABLET 200 MG PO (21:35)
[2023-05-31] MEDS: CYANOCOBALAMIN (VITAMIN B-12) 500 MCG TABLET PO (08:56)
[2023-05-31] MEDS: COENZYME Q10 100 MG CAPSULE PO (08:56)
[2023-05-31] MEDS: OMEPRAZOLE 20 MG CAPSULE DR PO (08:57)
[2023-05-31] MEDS: MULTIVITAMIN/MINERALS 1 TABLET 1 TAB PO (08:57)
[2023-05-31] MEDS: POTASSIUM CHLORIDE 10 MEQ CAPSULE ER 20 MEQ PO (08:57)
[2023-05-31] MEDS: FUROSEMIDE 20 MG TABLET PO (08:58)
[2023-05-31] MEDS: VENLAFAXINE HCL 37.5 MG TABLET 93.75 MG PO (08:58)
[2023-05-31 09:07] VITALS: BP 114/61; PULSE 86; RESP 16; TEMP 36.7; O2SAT 98
--- NOTE | 2023-05-31 09:39 | PC.SOCIAL ---
Discharge planning: Per MD order for in-pt mental health placement, checked for bed availability. No beds available at [facility] or [facility]. Called [facility] and was informed pt has been declined [facility] due to her aquity and that this is not expected to change, so [facility] is not an option for pt. Received call from [facility] in [place], stating they can assess pt for admit. Faxed updated packet to [facility], for evaluation for admit (phone [phone], fax [phone]. Awaiting call back with decision on admit.humidifier maintenance worker to follow up as needed.
--- NOTE | 2023-05-31 10:09 | NUTR.NU ---
RDN with nutrition screen for diabetic diet and Type 2 Diabetes Mellitus diagnosis. Diabetic diet education provided. Discussed basics of carbohydrate counting including sources of carbohydrates, serving sizes, and label reading. Discussed using the plate method for carbohydrate-controlled, balanced meals that include ? plate non-starchy vegetables, ? plate protein, and 3-4 servings of carbohydrates per meal (fruit, whole grains, legumes, milk, yogurt) and 1-2 per snack. ?Patient was also encouraged to keep timing of meals consistent and avoid skipping meals. Handouts provided to support discussion. Patient notes being familiar with carbohydrate counting. RDN contact information provided and encouraged patient to call with questions. RDN to follow up as needed.
--- NOTE | 2023-05-31 11:27 | PC.SOCIAL ---
Discharge planning: Received call back from [facility], stating pt is not appropriate for their geriatric unit as she does not have a dementia diagnosis and their unit specializes in patients with dementia. Called [facility] and spoke with intake who stated they have filled all their beds for today. Called [facility] and spoke with intake and faxed requested information for evaluation for admit. structural layout worker to follow up as needed.
--- NOTE | 2023-05-31 14:56 | PC.NURSE ---
End of shift- VSS on RA, VS qshift. She is independent in her room and is allowed to walk in the halls. No hallucinations this shift, still paranoid about people coming into her home and taking things, she claims it is real. Waiting for Geriatric psych placement. Update given to daughter Shanta late this AM. She would like to be updated on where she is going to be placed. Pt reports no pain.
[2023-05-31 15:22] VITALS: BP 133/63; PULSE 82; RESP 18; TEMP 36.6; O2SAT 97
--- NOTE | 2023-05-31 15:22 | P.IMPN_ITS ---
Progress Note: A&P Assessment and plan (1) Homicidal ideations: Problem details: regarding her spouse having affairs; no evidence of agitation, planning, or rage or concern here in the hospital. 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 She is 100% independent with self cares. She orders her meals. She is walking laps around the unit. She is pleasant. Objective: Happy with delusional stories. No insight. Vitals: No concerns see above Lungs: Clear. Cardiac: S1S2. Disposition/Potential discharge - Inpatient psych Total time is 35 minutes with greater than 50% spent in counseling and coordination of care. Exam Const: Vital Signs, click to edit/add: Vital Signs - 24 hr 05/30/23 16:00 05/30/23 21:31 05/31/23 09:07 Temperature 97.0 F L 97.9 F 98.1 F Pulse Rate [Pulse Oximeter] 87 83 86 Respiratory Rate 18 18 16 Blood Pressure [Le ft Arm] 124/79 130/71 114/61 Pulse Oximetry 95 96 98 Oxygen Delivery Me thod Room Air Room Air Room Air
[2023-05-31 15:52] LABS: SARS PCR* Negative SARS-CoV-2 (Negative)
--- NOTE | 2023-05-31 16:52 | PC.NURSE ---
Pt alert and oriented. Pt pleasant and cooperative. Pt independent in room. VSS. Pt does not have an IV. When performing assessment Pt stated ?I am here for my mental health. I am feeling better than yesterday, and I would like to go home but I don?t think that will happen and I can understand why.? Pt accepted by [facility] in [place]; Sample Maker Hand called and gave nurse to nurse report with Amena PAREDES. Pt will be going to [facility]; Room 230. Pt to be picked up at 1830 by EMS. Sample Maker Hand called Amena PAREDES to update on milk pickup driver time for transfer.?
--- NOTE | 2023-05-31 17:01 | PC.SOCIAL ---
Discharge plan: Received call back from [facility] stating that they can not accept pt because they feel she may have undiagnosed dementia and they do not take patients with dementia. Called back to [facility] at dtrs request and they have an opening. Faxed information and received a call back stating they can accept pt today for in-pt mental health. Nurse to provide nurse to nurse and expected arrival time to facility when determined. Called dtrShanta, who is pleased with this plan. RN to follow up as needed.
--- NOTE | 2023-06-01 17:06 | PM.DST ---
Transfer Discharge Sum: Prov Provider Date Seen: 05/29/23 Date of admission: 05/29/23 16:30 Primary care physician: Keke Holden MD Consults: 05/29/23 17:05 Consult to Research And Evaluation Manager [CONS] Routine Comment: Reason for Consult:: Social Service Consult Anticipated date of transfer: 05/31/23 Receiving physician/facility: [facility] DS: Diagnosis Discharge Diagnosis (1) Paranoia: Status: Acute Problem details: - concerned about people coming into her house, having affairs - placement for [facility] (2) Hallucinations: Status: Acute (3) Homicidal ideations: Status: Acute Problem details: regarding her spouse having affairs; no evidence of agitation, planning, or rage or concern here in the hospital. 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 PPI therapy suggested - continue home omeprazole (6) Hyperlipidemia: Status: Chronic Problem details: - continue pravastatin (7) Hyponatremia: Status: Acute Problem details: - mild, unlikely contributing to paranoia, resolved hospital day #1 (8) Hypokalemia: Status: Acute Problem details: Mild, asymptomatic Transfer Discharge Sum: Med Medications Active and Home Medications: Home Medications calcium polycarbophil 625 mg tablet 625 mg PO DAILY 05/18/22 [History Confirmed 05/29/23] cholecalciferol (vitamin D3) 125 mcg (5,000 unit) capsule 125 mcg PO QDAY 05/18/22 [History Confirmed 05/29/23] coenzyme Q10 100 mg capsule 100 mg PO DAILY 05/18/22 [History Confirmed 05/29/23] furosemide 20 mg tablet 20 mg PO QAM 05/18/22 [History Confirmed 05/29/23] metformin 1,000 mg tablet 1,000 mg PO QDAY 05/18/22 [History Confirmed 05/29/23] omeprazole 20 mg capsule,delayed release 20 mg PO QDAY 05/18/22 [History Confirmed 05/29/23] trazodone 100 mg tablet 200 mg PO QHS 05/18/22 [History Confirmed 05/29/23] venlafaxine 100 mg tablet 100 mg PO BID 05/18/22 [History Confirmed 05/29/23] cyanocobalamin (vitamin B-12) 100 mcg tablet (Vitamin B-12) 100 mcg PO DAILY 08/14/22 [History Confirmed 05/29/23] melatonin 10 mg capsule 10 mg PO QHS 08/14/22 [History Confirmed 05/29/23] multivitamin with iron (Daily Multiple Vitamins with Iron tablet) 1 tab PO DAILY 08/14/22 [History Confirmed 05/29/23] potassium chloride 10 mEq tablet,extended release 20 meq PO BID 08/14/22 [History Confirmed 05/29/23] quetiapine 100 mg tablet (Seroquel) 100 mg PO QHS 08/14/22 [History Confirmed 05/29/23] vit [id number] 500 mg-50 mg-25 mg-40 mg tablet (Bioflex) 1 tab PO BID 08/14/22 [History Confirmed 05/29/23] potassium chloride 20 mEq tablet,extended release 20 meq PO BID 05/29/23 [History Confirmed 05/29/23] pravastatin 40 mg tablet 40 mg PO HS 05/29/23 [History Confirmed 05/29/23] Transfer Discharge Sum: Hosp Hospital Course Hospital course: Please see diagnoses above for more details. This is a 73-year-old female presented to a clinic earlier in the day and then was sent to the ER for confusion, paranoia and homicidal thoughts. She had labs and a head CT in the emergency department which were fairly unremarkable. No psychiatric bed was available so she was admitted for observation. She remained medically stable, was 100% independent with self cares, walking and able to order her own meals. She is transferred to [facility] for inpatient [facility]. Time Spent with Patient Time attestation: Total time spent providing and/or coordinating transfer services: Exam Narrative: Exam Narrative: see today's progress note from Dr. No Transfer Discharge Sum: Data Data Completed and Pending Completed studies during hospitalization: Ordering Physician: Nani Zamora M.D. Date of Service: 05/28/23 Procedure(s): CT head/brain wo con Accession Number(s): [id number] cc: Keke Holden M.D.; Nani Zamora M.D.~ For Patients: As a result of the 21st Century Cures Act, medical imaging exams and procedure reports are released immediately into your electronic medical record. You may view this report before your referring provider. If you have questions, please contact your health care provider. INDICATION: Fall TECHNIQUE: CT head without contrast. COMPARISON: None. FINDINGS: CSF spaces: Within normal limits for age. Brain parenchyma: The phillips-white differentiation is normal. No sign of mass, hemorrhage, or midline shift. Skull base and calvarium: The visualized paranasal sinuses and mastoid air cells demonstrate no acute or significant findings. The visualized orbits are grossly unremarkable. No skull fractures. Atherosclerosis. IMPRESSION: Unremarkable noncontrast head CT. Please note that all CT scans at this facility use dose modulation, iterative reconstruction, and/or weight-based dosing when appropriate to reduce radiation dose to as low as reasonably achievable. Dictated by Pete Mcrae MD @ 05/28/2023 2:35:23 PM (Electronically Signed) Discharge Plan Discharge Disposition: [facility] Date of Admission: 05/29/23 16:30 Attending Physician on Admission: Aliyah Berry Primary Care Provider: Keke Holden I Condition: Stable Discharge Medications: No Action coenzyme Q10 100 mg capsule 100 mg PO DAILY calcium polycarbophil 625 mg tablet 625 mg PO DAILY venlafaxine 100 mg tablet 100 mg PO BID trazodone 100 mg tablet 200 mg PO QHS omeprazole 20 mg capsule,delayed release(DR/EC) 20 mg PO QDAY metformin 1,000 mg tablet 1,000 mg PO QDAY furosemide 20 mg tablet 20 mg PO QAM cholecalciferol (vitamin D3) 125 mcg (5,000 unit) capsule 125 mcg PO QDAY melatonin 10 mg capsule 10 mg PO QHS Hold Instructions: old rx multivitamin with iron [Daily Multiple Vitamins/Iron] Tablet 1 tab PO DAILY potassium chloride 10 mEq tablet extended release 20 meq PO BID quetiapine [Seroquel] 100 mg tablet 100 mg PO QHS Bioflex 240-65-73-40 mg tablet 1 tab PO BID cyanocobalamin (vitamin B-12) [Vitamin B-12] 100 mcg tablet 100 mcg PO DAILY pravastatin 40 mg tablet 40 mg PO HS potassium chloride 20 mEq tablet extended release 20 meq PO BID Follow Up Appointments: Keke Holden MD [Primary Care Provider] - Forms: [facility] Info Instructions Hospital Course: IV was established labs were drawn. Head CT was done and was unremarkable. Lab work was unremarkable. There is no evidence of a UTI. Drug screen was negative. EKG, read by me, shows normal sinus rhythm with a pulse of 92. Dec assessment was ordered. In the meantime, patient did express her concern to the nursing staff about chief her head and the fact that she was under surveillance. Per DEC patient very paranoid. No homicidal or suicidal intent, but she did admit to homicidal comments towards her , but things said in anger. Patient would like outpt therapy service - family concerned about this as aggression has been escalating. Given the recurrent homicidal comments made towards her , escalating impression per family, and escalating paranoia in the last couple of weeks I do believe that inpatient treatment would be more beneficial and safer for this particular patient. Patient accepted that she would be admitted. Several hours into her ED stay she did start becoming agitated and requested a medicine to help her relax. Patient received 5 mg of p.o. Zyprexa and this did seem to help her agitation. Discharge Comments: Pt to [place] [facility] Oxygen: No Urinary Catheter: No
== END 2023-05-31 18:15 | disposition short-term general hospital (02) ==
LOC: ED 05-29 15:44 → MEDSURG 05-29 16:51
PROVIDERS: Family Medicine; Admitting Provider Family Medicine; Emergency Provider Family Medicine; PCP Family Medicine; Visit Provider Family Medicine
DX: R45.850 Homicidal ideations (principal); R44.3 Hallucinations, unspecified; E87.6 Hypokalemia; E87.1 Hypo-osmolality and hyponatremia; E11.9 Type 2 diabetes mellitus without complications; Z79.84 Long term (current) use of oral hypoglycemic drugs; K21.00 Gastro-esophageal reflux disease with esophagitis, without bleeding; E78.5 Hyperlipidemia, unspecified
CPT/HCPCS: 36415; 70450; 80048; 80076; 80143; 80179; 80306; 81001; 82077; 82140; 83605; 83690; 84443; 84484; 85025; 85610; 86140; 87086; 87635; 93005; 99285; A9153; A9270; G0378

== ENCOUNTER 2023-05-31 18:10 | Outpatient (CLI) | payer MEDICARE, BC, SELFPAY | END 2023-05-31 18:11 | disposition home or self-care (01) | LOC: AMB 06-02 12:53 | PROVIDERS: PCP Family Medicine; Visit Provider Family Medicine | DX: F22 Delusional disorders (principal); R44.3 Hallucinations, unspecified; R45.850 Homicidal ideations | CPT/HCPCS: A0425; A0428 ==